=== PATIENT | male | born 1935 | race Caucasian/White ===

== ENCOUNTER 2017-02-18 11:07 | Inpatient (IN) | payer MEDICARE, BC ==
[~2017-02-18] VITALS: Ht 188 cm; Wt 114.1 kg
[2017-02-18 14:20] VITALS: BP 157/76
--- NOTE | 2017-02-18 15:21 | HPEPDOC ---
[facility] Medical History & Physical Date of Admission Feb 18, 2017 History and Physical ATTENDING: Dr. 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 Karate Teacher. [facility] CC: Transfer from [facility] HPI: 81yoM who resides in [facility] and [facility] recently in [facility] for hunting. The Pt has a past medical history significant for systolic CHF, COPD who presented to [facility] 02/08/17 with chief complaint of shortness of breath. He also reported abdominal discomfort and petechial rash lower abdomen and lower extremities bilaterally. According to discharge summary, the patient was treated for small bowel enteritis with IV vancomycin and Zosyn. Initially his rash spread to his whole-body however and a few days this gradually resolved leaving some residual rash on the thighs only. He had some diarrhea and vomiting while he was there. The patient appeared to be improving however suddenly developed acute renal failure with reduced urine output noted of 30 mL on February 14 and 250 mL on February 15. With serum creatinine on 02/14/17 of 3.5. The patient was treated with IV fluids, nephrotoxic drugs were discontinued including aspirin and DORIS inhibitor. The patient was initially placed on IV hydrocortisone considering HSP. The case was discussed with nephrology at [facility] who felt possibly suggestive of ATN. Vasculitis workup was noted to be negative. The patient's serum creatinine peaked at 3.5 and decreased to 1.5. Urine output improved. The patient was subsequently noted to be fluid overloaded. IV Lasix was given. Subsequently transfer was arranged to [facility] for further management. The patient states he is currently having constipation. He also reports shortness of breath. Denies any fevers, chills, weakness, fatigue, TERRAZAS, CP, cough, palpitations, abdominal pain, N/V/D or changes in bowel or bladder habits. PMHx: Hypertension Systolic CHF/Systolic dysfunction. TTE [facility] EF 36-40%. TTE [facility] 05/23 EF 35-40%. RACHANA [facility] 05/22/16 EF 40-45%, global hypokinesis of left ventricle. CAD/cardiac stents Valvular heart disease/mitral valve repair Mitraclip. Chronic anemia Diabetes Carotid stenosis Chronic diabetic foot ulcers History of osteomyelitis COPD Dyslipidemia Gout DOUG. Patient states does not use CPAP. 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 SOCHX: Resides in: Lives part-time in [place], part-time in [facility], in [facility] for hunting. Marital Status: Kids: 3 Employment: Retired Tobacco use: Denies ETOH: Denies Illicit Drugs: Denies Advanced directives: None FAMHX: Mother: , old age per patient Father: , old age per patient Siblings: One brother Alive, arthritis, diabetes. Children: Alive, well Unexpected deaths due to medical reasons: None. ROS: As noted in HPI, otherwise 11pt ROS of systems reviewed and unremarkable. PE: GEN: 81yoM, appears stated age. Well-nourished, well developed. No acute distress. Alert and oriented x 3. Pleasant, interactive. HEENT: Normocephalic, atraumatic. Pupils are equal, round, and reactive to light. Extraocular movements are intact. No nystagmus appreciated. Sclera are nonicteric. Conjunctiva without injection. Nose midline. Nasal turbinates without bogginess. EACs both patent BL. TMs both visualized and batista with good cone of light, no bulging or erythema. No facial asymmetry. Moist mucous membranes. Dentition fair. Pharynx pink and moist, no cobblestoning. Neck supple , trachea midline. No lymphadenopathy or thyromegaly appreciated. CHEST: Regular rate and rhythm, +S1, +S2 LUNGS: Decreased BS at bases, with few rales. No wheezes, or rhonchi. Breathing appears symmetric and easy. Patient is speaking in full sentences. No accessory muscle use. ABD: Round, soft, non-tender, non-distended. +Bowel sounds throughout. No rebound or guarding. No costovertebral angle tenderness. EXT: Pulses 2+ bilaterally dorsalis pedis and radial. trace lower extremity edema appreciated. SKIN: Gaines, dry, warm. purpuric rash noted on LEs and few lesions on abdomen ( pt states has been resolving). Left foot ulcer noted. NEURO: Alert and oriented x 3. Cranial nerves III-XII are intact. No focal deficits appreciated. [facility] 02/18/17 WBC 11.1 Hemoglobin 9.8 Hematocrit 30.5 Platelets 221 Sodium 142 Potassium 3.7 Chloride 107 Carbon dioxide 26 BUN 40 Creatinine 1.80 GFR 36 Glucose 136 ProBNP 5699 Hemoglobin A1c 8.9 02/14/17 CRP 55.8 C Anca, p Anca, GUI-1, SS-A, SS-B, rowe Ab, OIL SPRAYER Ab, DS DNA, centromere B antibody, chromatin antibody, and Lyme unremarkable. 02/08/17 ESR 41 INR 1.0 Lactic acid 1.8 Magnesium 1.9 Amylase 68 Lipase 50 Troponin 0.061 Chest x-ray. [facility]. NAD. XR: Left foot. [facility]. Question third toe osteomyelitis, previously a patient digit [address]: Abdomen and pelvis [facility] 02/08/17. Small bowel enteritis, infectious versus inflammation versus ischemia. EKG: [facility] sinus bradycardia, 59 bpm. LAD, nonspecific ST-T wave abnormality, prolonged QT, QTC 469. BLOOD CULTURES: [facility] 02/08/17 no growth A&P: 81yoM with a past medical history significant for systolic CHF, COPD who presented to [facility] 02/08/17 with chief complaint of shortness of breath. He also reported abdominal discomfort and petechial rash lower abdomen and lower extremities bilaterally. According to discharge summary , the patient was treated for small bowel enteritis with IV vancomycin and Zosyn. Initially his rash spread to his whole-body however and a few days this gradually resolved leaving some residual rash on the thighs only. He had some diarrhea and vomiting while he was there. He was treated for dehydration with IV fluids. The patient appeared to be improving however suddenly developed acute renal failure with reduced urine output noted of 30 mL on February 14 and 250 mL on February 15. With serum creatinine on 02/14/17 of 3.5. The patient was treated with IV fluids, nephrotoxic drugs were discontinued including aspirin and DORIS inhibitor. The patient was initially placed on IV hydrocortisone considering HSP. The case was discussed with nephrology who felt possibly suggestive of ATN. Vasculitis workup was noted to be negative. The patient's serum creatinine peaked at 3.5 and decreased to 1.5. Urine output improved. The patient was subsequently noted to be fluid overloaded. IV Lasix was given 1. The patient will be admitted to PCU for at least [address] Stelee's service. Pt is discussed and examined as per Dr Zarate. 2. History of Small bowel enteritis. Status post vancomycin/Zosyn at [facility]. Request further labs. GI panel. 3. Diabetic ulcer/Charcot foot. Follows with podiatry in [facility]. Seen by orthopedics and [facility], not felt to be osteomyelitis. Plan was for possible elective debridement of left foot ulcer, pt declined. XR left foot pending. Request podiatry consult. Spoke with Podiatry, Dr Garcia who will see pt and also requests MRI left foot as well. 4. RODRICK. Adm labs pending. Request Urine studies. Nephrology consulted for further recommendations. Dr Jhoana Jefferson will see pt. 5. HTN/Systolic CHF/Systolic dysfunction. CXR pending. Labs, BNP and CXR pending , await results prior to diuretics. 6. VHD/MV repair. TTE pending. 7. CAD/Cardiac stents. PCU/TM. EKG pending. TTE pending. Labs pending. 8. DM. CC diet. SSI 9. DOUG. prn O2. Pt does not use CPAP as outpt. 10. Rash. Currently resolving. Etiology unclear. Vasculitis w/u unremarkable. CRP pending. 11. Prolonged QT. PCU/TM. MED REC IS PENDING AT THIS TIME. DVT prophylaxis. The patient is a Full code Vital Signs pending. Laboratory Data Labs 24H pending. Home Medications Scheduled Aspirin (Aspirin 81) 81 Mg Tab, 81 MG PO DAILY Carvedilol (Carvedilol) 6.25 Mg Tab, 6.25 MG PO BID WAS ON 12.5MG @ HOME - DECREASED AT [facility] Ferrous Gluconate (Ferrous Gluconate) 324 Mg Tab, 324 MG PO BID STARTED AT [facility] Glimepiride (Glimepiride) 2 Mg Tab, 2 MG PO BID Heparin Sod (Porcine) (Heparin Sodium) 5,000 Unit/Ml Inj, 5,000 UNIT SQ Q8H STARTED AT [facility] Hydrochlorothiazide (Hydrochlorothiazide) 25 Mg Tab, 25 MG PO DAILY Insulin Human Lispro (Humalog) 1 Units/0.01 Ml Inj, 0 SC ACHS PER SLIDING SCALE - STARTED AT [facility] Lactobacillus Rhamnosus (Culturelle) 1 Cap Cap, 1 CAP PO DAILY Lisinopril (Lisinopril) 10 Mg Tab, 10 MG PO DAILY Multivitamins *[facility] STOCKED* (Thera M Plus *[facility] STOCKED*) 1 Tab Tab, 1 TAB PO DAILY Omeprazole (Omeprazole) 40 Mg Cap, 40 MG PO DAILY Potassium Chloride (Klor-Con M20) 20 Meq Tabcr, 20 MEQ PO DAILY STARTED AT [facility] Pravastatin Sod (Pravastatin Sodium) 40 Mg Tab, 40 MG PO QHS Timolol Maleate (Timolol Maleate) 0.5 % Jessica, 1 % OU QAM Scheduled PRN Acetaminophen (Tylenol) 325 Mg Tab, 650 MG PO Q6H PRN for PAIN Dicyclomine HCl (Dicyclomine HCl) 10 Mg Cap, 10 MG PO Q6H PRN for CRAMPS Milk Of Magnesia (Milk of Magnesia) 1,200 Mg/15 Ml Hiwot, 30 ML PO DAILY PRN for CONSTIPATION STARTED AT [facility] Sodium Chloride (Sodium Chloride Nasal [place]) 0.65 % Spr, 2 SPRAY NA Q2H PRN for NASAL CONGESTION EACH NOSTRIL Allergies Coded Allergies: No Known Allergies (Unverified , 02/18/17) GME ATTESTATION GME ATTESTATION My faculty preceptor for this patient encounter was physically present during the encounter and was fully available. All aspects of the patient interview, examination, medical decision making process, and medical care plan development were reviewed and approved by the faculty preceptor. The faculty preceptor is aware and concurs with the plan as stated in the body of this note and will attest to such by his/her cosignature. ATTENDING NOTE I have both independently examined this patient as well as reviewed the H&P. I have discussed in detail with Arianna the findings and plan of treatment as documented in the Saul note. I will continue to follow the patient and offer further guidance to the patients care as necessary during this hospital stay. Arianna Aragon MD Feb 18, 2017 15:21 KARUNA ZARATE MD Feb 19, 2017 10:51
[2017-02-18] MEDS ORDERED: DEXTROSE 50% 50 ML SYRINGE IV PRN (15:45)
[2017-02-18] MEDS ORDERED: GLUCOSE 4 GM CHEW TABLET PO PRN (15:45)
[2017-02-18] MEDS ORDERED: GLUCAGON FOR INJ 1 MG VIAL (J1610) SC PRN (15:45)
[2017-02-18] MEDS ORDERED: ONDANSETRON 4MG/2ML VIAL (J2405) IV PRN (15:45)
[2017-02-18] MEDS ORDERED: PERCOCET 5MG/325MG TAB PO PRN (15:45)
[2017-02-18] MEDS ORDERED: ACETAMINOPHEN TAB 650MG DOSE (2X325MG) PO PRN (15:45)
[2017-02-18 16:00] VITALS: BP 149/72
[2017-02-18 16:11] LABS: BASO % 0.2 % (0.0-1.0); EOS % 0.1 % (0.0-3.0); IMMATURE GRANULOCYTE % 2.3 % (0-0); LYMPH % 9.1 % (24.0-44.0); MEAN CORPUSCULAR HEMOGLOBIN 32.9 pg (27.0-33.0); MEAN CORPUSCULAR HGB CONC 33.2 g/dl (32.0-36.5); MONO # 0.6 10^3/uL (0.0-0.8); MONO % 5.6 % (0.0-5.0); NEUTROPHILS # 8.9 10^3/uL (1.8-7.7); NEUTROPHILS % 82.7 % (36.0-66.0); PLATELET COUNT, AUTOMATED 218 10^3/uL (150-450); RED CELL DISTRIBUTION WIDTH 13.4 % (11.5-14.5); WHITE BLOOD COUNT 10.7 10^3/uL (4.0-10.0)
[2017-02-18] MEDS ORDERED: ASPI1TAB PO (16:14)
[2017-02-18] MEDS ORDERED: POTA20TA PO (16:14)
[2017-02-18] MEDS ORDERED: VITMTA PO (16:14)
[2017-02-18] MEDS ORDERED: CARV6.25 PO (16:14)
[2017-02-18] MEDS ORDERED: FERR32TA PO (16:14)
[2017-02-18] MEDS ORDERED: TIMO0.5S29 OD (16:14)
[2017-02-18] MEDS ORDERED: SODI0.65 (16:14)
[2017-02-18] MEDS ORDERED: PANT40TA2 PO (16:14)
[2017-02-18] MEDS ORDERED: TYLE325T5 PO (16:14)
[2017-02-18] MEDS ORDERED: MILKSUS PO (16:14)
[2017-02-18] MEDS ORDERED: HEPA50VL SQ (16:14)
[2017-02-18] MEDS ORDERED: INSUHUMDS SC (16:14)
[2017-02-18] MEDS ORDERED: PRAV40TA2 PO (16:14)
[2017-02-18] MEDS ORDERED: OMEP40CA2 PO (16:17)
[2017-02-18] MEDS ORDERED: DICY1CAP8 PO (16:17)
[2017-02-18] MEDS ORDERED: LISI10TA4 PO (16:17)
[2017-02-18] MEDS ORDERED: HYDR25TAB PO (16:17)
[2017-02-18] MEDS ORDERED: CULT10CA2 PO (16:17)
[2017-02-18] MEDS ORDERED: GLIM2TAB PO (16:17)
[2017-02-18 16:24] LABS: INR 1.01
[2017-02-18] MEDS ORDERED: SODIUM CHLORIDE NASAL 0.65% SPRAY BTL (OCEAN) PRN (16:30)
[2017-02-18] MEDS ORDERED: DICYCLOMINE 10 MG CAP PO PRN ×2 (16:30)
[2017-02-18] MEDS ORDERED: MIRALAX *UNIT DOSE* 17GM PACKET PO ONE (16:30)
[2017-02-18 16:42] LABS: ALBUMIN 3.1 GM/DL (3.2-5.2); ALBUMIN/GLOBULIN RATIO 1.07 (1.00-1.93); BILIRUBIN,TOTAL 0.3 MG/DL (0.2-1.0); CALCIUM LEVEL 8.1 MG/DL (8.8-10.2); CREATININE FOR GFR 1.89 MG/DL (0.70-1.30); GLOMERULAR FILTRATION RATE 36.5 (>35); MAGNESIUM LEVEL 2.3 MG/DL (1.8-2.4); POTASSIUM SERUM 4.4 MEQ/L (3.5-5.1); THYROXINE (T4) 9.3 UG/DL (4.5-12.0)
[2017-02-18] MEDS: LACTOBACILLUS ACIDOPHILUS CAP (BACID) PO SCH (17:48)
[2017-02-18] MEDS: HumaLOG INSULIN (NovoLOG) PER UNIT SC SCH ×2 (17:48→21:00)
[2017-02-18 18:15] VITALS: O2SAT 96
[2017-02-18] MEDS ORDERED: FUROSEMIDE 40 MG/4 ML VIAL (J1940) IV ONE (18:30)
[2017-02-18 20:53] VITALS: BP 165/80
[2017-02-18] MEDS: FERROUS GLUCONATE 324 MG TAB PO SCH (20:55)
[2017-02-18] MEDS: PRAVASTATIN 20 MG TAB PO SCH (20:55)
[2017-02-18] MEDS: CARVedilol 6.25 MG TAB PO SCH (20:55)
[2017-02-18] MEDS: SENOKOT S TAB PO SCH (20:55)
[2017-02-18] MEDS: HEPARIN SOD (PORCINE) 5000 UNITS/ML VIAL SQ SCH (20:56)
[2017-02-18] MEDS ORDERED: DOPamine 400 MG/500 ML BAG IN D5W (800MCG/ML) (J1265) As Ordered ONE (22:42)
[2017-02-19] VITALS (7 sets, daily range): BP systolic 108–160; BP diastolic 51–80
--- NOTE | 2017-02-19 01:13 | ECGEPIP ---
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 IVCD MARKED LEFT AXIS DEVIATION NONSPECIFIC ST & T-WAVE ABNORMALITY No prior tracing in the system Electronically Signed On 02-19-2017 1:13:31 EST by Liang Mcleod
[2017-02-19] MEDS: HEPARIN SOD (PORCINE) 5000 UNITS/ML VIAL SQ SCH ×3 (05:07→21:23)
[2017-02-19] MEDS: SLF 3 ML SYR IV SCH ×3 (05:07→21:23)
[2017-02-19 05:32] LABS: MEAN CORPUSCULAR HEMOGLOBIN 32.1 pg (27.0-33.0); MEAN CORPUSCULAR HGB CONC 32.6 g/dl (32.0-36.5); MEAN CORPUSCULAR VOLUME 98.3 fl (80.0-96.0); PLATELET COUNT, AUTOMATED 209 10^3/uL (150-450); RED CELL DISTRIBUTION WIDTH 13.4 % (11.5-14.5); WHITE BLOOD COUNT 9.9 10^3/uL (4.0-10.0)
[2017-02-19 05:54] LABS: CALCIUM LEVEL 7.9 MG/DL (8.8-10.2); CREATININE FOR GFR 1.78 MG/DL (0.70-1.30); GLOMERULAR FILTRATION RATE 39.1 (>35); MAGNESIUM LEVEL 2.1 MG/DL (1.8-2.4); PHOSPHORUS LEVEL 2.8 MG/DL (2.5-4.9); POTASSIUM SERUM 3.8 MEQ/L (3.5-5.1)
[2017-02-19] MEDS: HumaLOG INSULIN (NovoLOG) PER UNIT SC SCH ×4 (08:31→21:00)
[2017-02-19] MEDS: LACTOBACILLUS ACIDOPHILUS CAP (BACID) PO SCH ×3 (08:31→18:11)
--- NOTE | 2017-02-19 08:42 | REP ---
Clinical: Shortness of breath. Technique: PA and lateral. Comparison: None. Findings: Mediastinum and cardiac silhouette are within normal limits. Lung gandara demonstrate chronic-appearing interstitial changes. Superimposed acute atelectasis cannot be excluded. Subtle blunting to the bilateral costophrenic angles (right greater than left) may reflect chronic change versus small pleural reaction. No significant effusion. No pneumothorax. Skeletal structures intact. Impression: Chronic-appearing changes. Cannot exclude subtle superimposed basilar atelectasis. Signed by Flo Ramirez MD 02/19/2017 08:35 A
[2017-02-19] MEDS: SENOKOT S TAB PO SCH ×2 (09:00→21:23)
[2017-02-19] MEDS ORDERED: TIMOLOL MALEATE 0.5% OPHTH SOLN 5 ML OD SCH (09:00)
--- NOTE | 2017-02-19 09:10 | REP ---
Clinical: Acute renal insufficiency. Technique: Real time batista scale ultrasound examination using curved array transducer. Findings: The kidneys are normal in reniform shape and parenchymal echogenicity with increased central sinus fat suggesting chronic age-related changes. Incidental note is made of a 2.0 cm right lower pole renal cyst. There is no evidence for hydronephrosis, nephrolithiasis, perinephric stranding or renal mass lesion. The bladder is collapsed and grossly unremarkable. Right kidney measures 12.2 S 6.5 x 5.6 cm. Left kidney measures 12.4 x 6.8 x 5.5 cm. Impression: Findings to suggest age-related medical renal disease. No hydronephrosis. 2 cm lower pole right renal cyst. Signed by Flo Ramirez MD 02/19/2017 09:01 A
[2017-02-19] MEDS: CARVedilol 6.25 MG TAB PO SCH ×2 (09:34→21:00)
[2017-02-19] MEDS: FERROUS GLUCONATE 324 MG TAB PO SCH ×2 (09:34→21:23)
[2017-02-19] MEDS: MULTIVITAMINS/MINERALS THERAP 1 TAB PO SCH (09:34)
[2017-02-19] MEDS: ASPIRIN 81 MG ENTERIC TAB PO SCH (09:35)
[2017-02-19] MEDS: PANTOPRAZOLE 40MG TAB (PROTONIX) PO SCH (09:35)
[2017-02-19] MEDS: MIRALAX *UNIT DOSE* 17GM PACKET PO SCH (09:38)
[2017-02-19] MEDS ORDERED: TIMO0.5S29 OU (10:42)
[2017-02-19] MEDS: TIMOLOL MALEATE 0.5% OPHTH SOLN 5 ML OU SCH (11:08)
--- NOTE | 2017-02-19 11:23 | REP ---
MRI LEFT FOOT: TECHNIQUE: Multiple sequences obtained in the axial, coronal, and sagittal planes. Reportedly, there is a diabetic ulcer in the medial mid foot. The study limited as there is poor signal and poor imaging of the toes and distal metatarsals. The remaining proximal metatarsals and tarsal bones demonstrate normal marrow signal with no evidence of osteomyelitis or occult fracture. Scattered superficial soft tissue edema is seen in the mid foot. No fluid collection or abscess is seen. I do not see evidence of a joint effusion. Visualized tendons and ligaments appear intact at the ankle. IMPRESSION: No evidence of osteomyelitis of the mid foot and hind foot, as discussed in detail above. Superficial soft tissue edema. No fluid collection or abscess. Signed by Mookie Allan MD 02/19/2017 04:53 P
[2017-02-19] MEDS: FUROSEMIDE 40 MG/4 ML VIAL (J1940) IV SCH (12:44)
--- NOTE | 2017-02-19 13:19 | IPNPDOC ---
Text Note Date of Service The patient was seen on 02/19/17. NOTE Subjective: Feels well. Denies any complaints. No chest pain/shortness of breath /palpitations. Objective: Vitals: (see below) General: No acute distress, laying comfortably in bed. HEENT: Moist mucous membranes. Neck: No JVD or lymphadenopathy Cardiac: RRR, No murmurs Pulm: Minimal coarse crackles at the bases b/l. No wheezing, rhonchi Abd: NT/ND + BS Ext: 1+ pitting edema bilateral lower extremities left greater than the right. Distal pulses intact. Left foot wound with bandage status post debridement by Dr. Garcia. No cyanosis Labs (see below) Images: MRI left foot 02/18/17 IMPRESSION: No evidence of osteomyelitis of the mid foot and hind foot, as discussed in detail above. Superficial soft tissue edema. No fluid collection or abscess. Renal ultrasound 02/18/17 Impression: Findings to suggest age-related medical renal disease. No hydronephrosis. 2 cm lower pole right renal cyst. Assessment/Plan 1. Recent small bowel enteritis- status post Vanc/ Zosyn at [facility]. Resolved. No leukocytosis and fevers. 2. Diabetic foot, Charcot foot- evaluated by Dr. Garcia status post debridement 02/19, with recommendations for starting antibiotics pending cultures, per Dr. Garcia. Patient has been started on doxycycline. 3. Acute kidney injury- patient is unsure what his normal renal function is. Did have a creatinine greater than 3 [facility] and is down to 1.7. Appreciate nephrology input. Started on Lasix as his renal function improved and he does have lower extremity edema. 4. History of systolic heart failure- echocardiogram pending. History of ear for 35-40%. 5. Status post mitral valve repair in [place] in May 2016 6. Hypertension- controlled continue current meds 7. History of CAD status post PCI-continue home meds 8. Diabetes mellitus- carpal consistent diet. Slight scale insulin. 9. Obstructive sleep apnea- encouraged uses home CPAP which she does not use at home. As needed oxygen at night. 10. Rash noted [facility]- has been resolving. Had an extensive vascular workup which was negative at [facility]. DVT prophy: Heparin subcutaneous VS,Fishbone, I+O VS, Fishbone, I+O Laboratory Tests 02/18/17 16:00 Red Blood Count 3.10 L, Mean Corpuscular Volume 99.0 H, Mean Corpuscular Hemoglobin 32.9, Mean Corpuscular Hemoglobin Concent 33.2, Red Cell Distribution Width 13.4, Neutrophils (%) (Auto) 82.7 H, Lymphocytes (%) (Auto) 9.1 L, Monocytes (%) (Auto) 5.6 H, Eosinophils (%) (Auto) 0.1, Basophils (%) ( Auto) 0.2, Neutrophils # (Auto) 8.9 H, Lymphocytes # (Auto) 1.0 L, Monocytes # ( Auto) 0.6, Eosinophils # (Auto) 0.0, Basophils # (Auto) 0.0, Calcium Level 8.1 L , Aspartate Amino Transf (AST/SGOT) 19, Alanine Aminotransferase (ALT/SGPT) 25, Total Creatine Kinase 108, Alkaline Phosphatase 61, Total Bilirubin 0.3, Total Protein 6.0 L, Albumin 3.1 L 02/19/17 04:59 Red Blood Count 2.90 L, Mean Corpuscular Volume 98.3 H, Mean Corpuscular Hemoglobin 32.1, Mean Corpuscular Hemoglobin Concent 32.6, Red Cell Distribution Width 13.4, Calcium Level 7.9 L Vital Signs Date Time Temp Pulse Resp B/P (MAP) Pulse Ox O2 Delivery O2 Flow Rate FiO2 02/19/17 12:00 97.6 89 26 123/80 (94) 98 Nasal Cannula 1.0 I&O- Last 24 Hours up to 6 AM 02/20/17 06:00 Intake Total 120 ml Output Total 350 ml Balance -230 ml ISAC SAUNDERS MD Feb 19, 2017 13:19
[2017-02-19] MEDS: DOXYCYCLINE HYCLATE 100 MG in D5W MINI-BAG PLUS 100 ML IV SCH (14:36)
[2017-02-19] MEDS: SLF 3 ML SYR IV PRN (14:36)
--- NOTE | 2017-02-19 16:03 | MHCR ---
DATE OF CONSULTATION: 02/19/2017 HISTORY OF PRESENT ILLNESS: Mr. Chinchilla is an 81-year-old male who resides in [place]. He was up hunting in [place]. The patient states that he was short of breath, subsequently admitted to the hospital, and subsequently transferred to [facility]. He has a history of an ulceration on the plantar surface of his left foot which he states he was on some IV antibiotics. He has had previous surgery on his left foot as well consisting of a partial amputation of the second toe and he is seen today on referral for an ulceration on the plantar surface of the left foot with callus and redness. PAST MEDICAL HISTORY: Includes: 1. Hypertension. 2. Systolic congestive heart failure with systolic dysfunction. 3. Valvular heart disease. 4. Mitral valve repair. 5. Chronic anemia. 6. Diabetes. 7. Cardiac stenosis. 8. 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 9. Chronic foot ulcers. 10. Dyslipidemia. 11. Gout. PAST SURGICAL HISTORY: 1. Partial second toe amputation of the left foot. 2. Total knee arthroplasties, bilateral. 3. Open reduction and internal fixation of a femoral fracture. 4. Mitral valve repair. PHYSICAL EXAMINATION: Reveals an alert, well-oriented 81-year-old male in no acute distress. Evaluation of his left foot reveals a hyperkeratotic lesion present on the plantar surface of the left foot. He has a Charcot joint deformity with a flat foot. Second toe has had a previous partial amputation. His pedal pulses are not palpable. After appropriate consent and time-out, the ulcer was debrided with a sterile scalpel and curette revealing a 9 mm x 2 mm x 1 mm in depth ulceration. This does not penetrate down to bone. This was cultured for aerobic and anaerobic bacteriology. The patient's hyperkeratotic rim around the ulcer measures 12 mm. LABORATORY STUDIES: Reviewed revealing a white count of 9.9. His C-reactive protein is elevated at 3.97. IMAGING STUDIES: MRI reveals no signs of osteomyelitis. There is erythema surrounding the ulceration measuring approximately 1 cm consistent with cellulitis. No edema of the foot or signs of active Charcot joint disease on either extremity. ASSESSMENT: 1. Infected stage III ulceration, plantar surface left foot as described. 2. Diabetes with peripheral artery disease. 3. Old Charcot joint deformity. His left foot is presently stable. PLAN: The patient has a brace. However, he states that it broke and he thinks that is why his ulcer formed. He is to have local wound care, consisting of Vashe to clean the ulcer followed by a saline-moistened gauze dressing. The patient would benefit from either a reapplication of a neuropathic walking brace or custom molded diabetic shoes which can be done on an outpatient basis. Recommend antibiotic coverage which can be tailored according his culture and sensitivity. The patient can ambulate in a surgical shoe until custom shoes or bracing is available. His questions were answered. Thank you for this consultation.
[2017-02-19] MEDS: PRAVASTATIN 20 MG TAB PO SCH (21:22)
--- NOTE | 2017-02-19 23:33 | ECHO ---
DATE OF PROCEDURE: 02/19/2017 DATE OF : 1935 AGE: 81 GENDER: Male HEIGHT: 74 inches WEIGHT: 264 pounds BODY SURFACE AREA: 2.45 meters squared INPATIENT: U, room 3219 REFERRING PHYSICIAN: Dr. Shree Steele INDICATION: Dyspnea MEASUREMENTS: 2D Measurements: RV: 5.5 cm LV: 5.4 cm Septum: 1.3 cm Posterior wall: 1.3 cm Aortic root: 3.8 cm LA: 5.1 cm LVEF: 45% Doppler Measurements: AV: 1.8 meters per second LVOT: 0.95 meters per second LVOT diameter: 2.3 cm MV: E 150 A: 104, EA ratio 1.5 Early mitral deceleration time: 360 milliseconds Mean gradient: 3 mmHg E prime: 5.4, A prime: 6, E/E prime ratio: 23 PV: 0.9 meters per second Pulmonary artery acceleration time: 109 milliseconds RVSP: 46-51 mmHg COMMENTS: Normal sinus rhythm/sinus bradycardia with incomplete left bundle branch block. Prominently dilated left atrium with left ventricle upper limits of normal. Right heart chamber sizes were prominently dilated. LV wall thickness was mildly increased symmetrically. On real-time imaging from the parasternal and apical projections, there was an obvious flattening of the septum with akinesis of that segment but other left ventricular wall segments moved normally. Mild to moderate mitral annular thickening with slightly thickened mitral leaflet edges with obvious mitral leaflet clip. Reduced leaflet excursion but no posterior systolic buckling. Three equal size aortic cusps with mildly thickened cusp edges but adequate cusp separation. Aortic root was borderline increased. No apparent intracardiac mass or pericardial effusion. Color flow Doppler study taken from the parasternal and apical projection showed mild mitral, moderate tricuspid but no aortic insufficiency. Guided continuous wave Doppler of his aortic valve showed a normal peak systolic velocity against LV outflow tract obstruction. Pulsed and continuous wave Doppler of his LV inflow tract taken for the apical four-chamber projection showed normal diastolic filling velocities against mitral stenosis. Even with the mitral leaflet clip, the measured mean mitral valve diastolic gradient was within normal limits. The LV inflow tract pattern was normal. Estimated mean left atrial pressure was increased at approximately 23 mmHg. Pulsed and continuous wave Doppler of his pulmonary trunk showed a normal peak systolic velocity against RV outflow tract obstruction. His pulmonary artery acceleration time was abbreviated consistent with an elevated pulmonary vascular resistance. Guided continuous wave Doppler of his tricuspid valve allowed our estimation of his right ventricular systolic pressure (at least moderately increased). In light of his body habitus, we were unable to clearly visualize his inferior vena cava to further estimate his central venous pressure. We used an estimated central venous pressure of 10 mmHg. CONCLUSIONS: Mild concentric left ventricular hypertrophy with septal wall motion abnormality due to right ventricular pressure overload with at least mild impairment of global resting left ventricular systolic function. Prominently dilated left atrium with elevated estimated mean left atrial pressure. Prominently dilated right heart chambers with at least moderately severe pulmonary hypertension. Inferior vena cava (IVC) could not be clearly visualized. Mild to moderate mitral annular calcification and slight leaflet thickening with mitral leaflet clip in situ. No significant LV inflow tract obstruction and only mild persistent mitral insufficiency. Mild aortic valvular sclerosis without functional valvular abnormality. MTDD
[2017-02-20] VITALS (7 sets, daily range): BP systolic 117–173; BP diastolic 56–83
--- NOTE | 2017-02-20 00:49 | IPNPDOC ---
Text Note Date of Service The patient was seen on 02/20/17. NOTE Patient Bradycardic to low 50s as per the Nurse, So Coreg being Held for Now Travis YAO, I+O VSTravis I+O Laboratory Tests 02/19/17 04:59 Red Blood Count 2.90 L, Mean Corpuscular Volume 98.3 H, Mean Corpuscular Hemoglobin 32.1, Mean Corpuscular Hemoglobin Concent 32.6, Red Cell Distribution Width 13.4, Calcium Level 7.9 L Vital Signs Date Time Temp Pulse Resp B/P (MAP) Pulse Ox O2 Delivery O2 Flow Rate FiO2 02/20/17 00:16 97.0 58 20 146/72 (96) 94 Nasal Cannula 1.0 ZANE DEL CASTILLO MD Feb 20, 2017 00:49
[2017-02-20] MEDS: DOXYCYCLINE HYCLATE 100 MG in D5W MINI-BAG PLUS 100 ML IV SCH ×2 (02:57→13:39)
[2017-02-20 05:30] LABS: MEAN CORPUSCULAR HEMOGLOBIN 32.1 pg (27.0-33.0); MEAN CORPUSCULAR HGB CONC 32.9 g/dl (32.0-36.5); MEAN CORPUSCULAR VOLUME 97.7 fl (80.0-96.0); PLATELET COUNT, AUTOMATED 203 10^3/uL (150-450); RED CELL DISTRIBUTION WIDTH 13.2 % (11.5-14.5); WHITE BLOOD COUNT 7.7 10^3/uL (4.0-10.0)
[2017-02-20 05:50] LABS: CREATININE FOR GFR 1.47 MG/DL (0.70-1.30); GLOMERULAR FILTRATION RATE 48.8 (>35); MAGNESIUM LEVEL 1.9 MG/DL (1.8-2.4); POTASSIUM SERUM 3.4 MEQ/L (3.5-5.1)
[2017-02-20] MEDS: SLF 3 ML SYR IV SCH ×3 (06:00→21:09)
[2017-02-20] MEDS: HEPARIN SOD (PORCINE) 5000 UNITS/ML VIAL SQ SCH ×3 (06:11→21:08)
--- NOTE | 2017-02-20 06:49 | CR ---
DATE OF CONSULTATION: 02/19/2017 REQUESTING PHYSICIAN: Dr. Sarah Dias. REASON FOR CONSULTATION: Acute kidney injury, nonoliguric. CHIEF COMPLAINT: Diffuse rash and abdominal pain prompting admission to [facility], now with subsequent transfer to [facility]. HISTORY OF PRESENT ILLNESS: Mr. Nicanor Chinchilla is an 81-year-old male with a past medical history of longstanding hypertension and diabetes, coronary artery disease with history of stent and systolic cardiomyopathy, history of mitral valve repair and chronic obstructive pulmonary disease (COPD). The patient recently drove from [place] to [facility] for hunting. He spent one night in camp and woke up the next morning with abdominal discomfort, nausea, and a rash that was petechial in nature over his abdomen and lower extremities. He was subsequently admitted to [facility] on 02/08. During the course of his stay there, his rash diffusely spread to cover about 80% total body surface area. The patient was concurrently having gastrointestinal (GI) distress with diarrhea and vomiting, and he received empiric antibiotics for small bowel enteritis. In the setting of the diffuse rash, the patient's renal function also declined with a peak creatinine of 3.5. At that time, he was given intravenous (IV) fluids and his angiotension-converting enzyme (DORIS) inhibitor was discontinued. The patient was started on empiric steroids and a vasculitic workup was sent off and returned negative. The patient's renal function and urine output subsequently began to improve. However, he complains of shortness of breath. He was started on IV Lasix and subsequently transferred to [facility] for further management. The patient is seen at the bedside today. He denies any ongoing abdominal discomfort, denies any nausea, vomiting or diarrhea. He does note dyspnea on exertion that is new compared to prior. He denies any prior history of acute kidney injury. He states that his rash has significantly improved compared to prior. PAST MEDICAL HISTORY: 1. Baseline creatinine less than one. 2. Longstanding hypertension. 3. Diabetes. 4. Coronary artery disease status post cardiac stent. 5. History of systolic heart failure with left ventricular ejection fraction of about 40%. 6. Mitral valve repair. 7. Chronic diabetic foot ulcer. 8. History of osteomyelitis. 9. Chronic obstructive pulmonary disease (COPD). 10. Hyperlipidemia. PAST SURGICAL HISTORY: 1. Total knee arthroplasty bilaterally. 2. History of femur fracture status post open reduction, internal fixation (ORIF) in 2012. 3. Debridement of left foot. 4. 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 5. Mitral valve repair in 2017. SOCIAL HISTORY: The patient resides in [place] and traveled to [place] for hunting. He denies tobacco, alcohol or drug use. FAMILY HISTORY: He denies any significant family history of renal failure or kidney disease. ALLERGIES: No known allergies. REVIEW OF SYSTEMS: As noted in history of present illness (HPI); otherwise, 12-point review of systems is unremarkable. PHYSICAL EXAMINATION: VITAL SIGNS: Temperature afebrile for the past 24 hours while here. Current temperature 98.1, pulse 89, respiratory rate 20-22 breaths per minute, blood pressure 123/80, saturating 98% on one liter nasal cannula. INTAKE AND OUTPUT: Urine output thus far 0 mL. Weight in the bed scale today 118 kg, decreased from prior. GENERAL: The patient is seen lying in bed comfortable in no acute distress. HEENT: Extraocular muscles are intact. Mucous membranes are moist. No oral ulcers or lesions noted. NECK: Supple. Jugular veins are not elevated. CARDIAC: S1, S2. Regular rate and rhythm. 2+ radial pulse. 1+ pitting edema in the left lower extremity and trace edema in the right. No edema in the upper extremities. PULMONARY: The patient is in no acute respiratory distress. No accessory muscle of inspiration in use. However, is mildly tachypneic, respiratory rate 20-22. There are diminished breath sounds at the bases. No wheezing or rhonchi. ABDOMEN: Soft, obese, nontender. Positive bowel sounds. EXTREMITIES: 1+ pitting edema on the left lower extremity. Trace edema on the right lower extremity. The left foot is dressed. NEUROLOGIC: No focal deficits. PSYCHIATRIC: Appropriate mood and affect. SKIN: Skin is warm and dry. There are fading purpuric and petechial rashes noted on the lower extremities and on the abdomen. LABORATORY DATA: White count 9.9, hemoglobin 9.3, platelets 209. Sodium 143, potassium 3.8, bicarbonate 27, BUN 35, creatinine 1.7, glucose 144, magnesium 2.1. CRP 3.9. Urinalysis negative for protein. Two RBCs present. MICROBIOLOGY: Blood culture 02/18: No growth times two sets. IMAGING: Renal ultrasound 02/18: Echogenic kidneys without hydronephrosis. Bladder is collapsed. A 2 cm lower pole right renal cyst. INPATIENT MEDICATIONS: I have started the patient on Lasix 40 mg IV daily. He is also on: - doxycycline 100 mg IV every 12 - aspirin 81 mg by mouth daily - Coreg 6.25 mg by mouth twice a day - ferrous 324 mg by mouth twice a day - insulin - Bacid - Percocet as needed - Zofran as needed - Protonix 40 mg by mouth daily - MiraLAX one packet by mouth daily - pravastatin 40 mg by mouth at bedtime HOME MEDICATIONS: - aspirin 81 mg by mouth daily - carvedilol 6.25 mg by mouth twice a day - glimepiride 2 mg by mouth twice a day - hydrochlorothiazide 25 mg by mouth daily - insulin sliding scale - lactobacillus one capsule by mouth daily - lisinopril 10 mg by mouth daily - omeprazole 40 mg by mouth daily - pravastatin 40 mg by mouth at bedtime - timolol eye drops PROBLEMS: 1. Nonoliguric acute kidney injury in the setting of sudden-onset diffuse rash and accompanying small bowel enteritis with recent empiric antibiotics with vancomycin and Zosyn, and also recent course of steroids. The patient's peak creatinine was 3.5, and his renal function is improving. Apparently his baseline creatinine is less than one. His renal ultrasound was unremarkable and urinalysis was negative for protein and only showed two red blood cells (RBCs). Given the overall lack of protein and blood, glomerulonephritis is much less likely, and I am inclined to think the patient has a recovering acute tubular injury, possible tubular necrosis. At this point, his electrolytes are stable and he is mildly hypervolemic. He has responded well to Lasix 40 mg IV daily, and at the present, I will continue him on the same. Avoid all nephrotoxics at this time. 2. Diffuse purpuric rash with sudden onset and subsequent improvement. I am unsure of the etiology of the patient's rash. At present, it is minimal. He had an extensive vasculitic workup at [facility] which was negative, and he completed a course of steroids for the same. 3. Systolic cardiomyopathy with ejection fraction of about 40% on previous echocardiogram, brain natriuretic peptide (BNP) 7800, and the patient has some mild to moderate decompensation in volume status. Will continue with IV Lasix 40 mg daily, along with fluid restriction and daily weights. 4. Hypertension. Well controlled on current regimen. 5. Diabetic foot. The patient is status post debridement and has started on doxycycline, pending cultures. Thank you for involving me in the care of this patient. I will be happy to follow the patient along with you.
[2017-02-20] MEDS ORDERED: POTASSIUM CHLORIDE 10 MEQ SR TABLET PO ONE (08:00)
[2017-02-20] MEDS: TIMOLOL MALEATE 0.5% OPHTH SOLN 5 ML OU SCH (08:26)
[2017-02-20] MEDS: HumaLOG INSULIN (NovoLOG) PER UNIT SC SCH ×4 (08:26→20:54)
[2017-02-20] MEDS: MIRALAX *UNIT DOSE* 17GM PACKET PO SCH (08:26)
[2017-02-20] MEDS: FUROSEMIDE 40 MG/4 ML VIAL (J1940) IV SCH (08:26)
[2017-02-20] MEDS: MULTIVITAMINS/MINERALS THERAP 1 TAB PO SCH (08:27)
[2017-02-20] MEDS: PANTOPRAZOLE 40MG TAB (PROTONIX) PO SCH (08:27)
[2017-02-20] MEDS: ASPIRIN 81 MG ENTERIC TAB PO SCH (08:27)
[2017-02-20] MEDS: CARVedilol 3.125 MG TAB PO SCH ×2 (08:27→21:08)
[2017-02-20] MEDS: SENOKOT S TAB PO SCH ×2 (08:27→21:08)
[2017-02-20] MEDS: LACTOBACILLUS ACIDOPHILUS CAP (BACID) PO SCH ×3 (08:27→17:22)
[2017-02-20] MEDS: FERROUS GLUCONATE 324 MG TAB PO SCH ×2 (08:28→21:08)
--- NOTE | 2017-02-20 13:09 | IPNPDOC ---
Text Note Date of Service The patient was seen on 02/20/17. NOTE Subjective: Feels well. Denies any complaints. No chest pain/shortness of breath /palpitations. Objective: Vitals: (see below) General: No acute distress, laying comfortably in bed. HEENT: Moist mucous membranes. Neck: No JVD or lymphadenopathy Cardiac: RRR, No murmurs Pulm: Minimal coarse crackles at the bases b/l. No wheezing, rhonchi Abd: NT/ND + BS Ext: 1+ pitting edema bilateral lower extremities left greater than the right improving. Distal pulses intact. Left foot wound with bandage status post debridement by Dr. Garcia. No cyanosis Labs (see below) Images: MRI left foot 02/18/17 IMPRESSION: No evidence of osteomyelitis of the mid foot and hind foot, as discussed in detail above. Superficial soft tissue edema. No fluid collection or abscess. Renal ultrasound 02/18/17 Impression: Findings to suggest age-related medical renal disease. No hydronephrosis. 2 cm lower pole right renal cyst. Assessment/Plan 1. Recent small bowel enteritis- status post Vanc/ Zosyn at [facility]. Resolved. No leukocytosis and fevers. 2. Diabetic foot, Charcot foot- evaluated by Dr. Garcia status post debridement 02/19, with recommendations for starting antibiotics pending cultures, per Dr. Garcia. Patient has been started on doxycycline. 3. Acute kidney injury- patient is unsure what his normal renal function is. Did have a creatinine greater than 3 [facility] and is down to 1.7. Appreciate nephrology input. Started on Lasix as his renal function improved and he does have lower extremity edema. 4. History of systolic heart failure- echocardiogram pending. History of ear for 35-40%. 5. Status post mitral valve repair in [place] in May 2016 6. Hypertension- controlled continue current meds 7. History of CAD status post PCI-continue home meds 8. Diabetes mellitus- carpal consistent diet. Slight scale insulin. 9. Obstructive sleep apnea- encouraged uses home CPAP which she does not use at home. As needed oxygen at night. 10. Rash noted [facility]- has been resolving. Had an extensive vascular workup which was negative at [facility]. DVT prophy: Heparin subcutaneous VS,Fishbone, I+O VS, Fishbone, I+O Laboratory Tests 02/20/17 05:14 Red Blood Count 3.08 L, Mean Corpuscular Volume 97.7 H, Mean Corpuscular Hemoglobin 32.1, Mean Corpuscular Hemoglobin Concent 32.9, Red Cell Distribution Width 13.2, Calcium Level 8.0 L Vital Signs Date Time Temp Pulse Resp B/P (MAP) Pulse Ox O2 Delivery O2 Flow Rate FiO2 02/20/17 09:10 Nasal Cannula 1.0 02/20/17 08:27 78 137/63 02/20/17 08:00 98.3 19 98 I&O- Last 24 Hours up to 6 AM 02/21/17 06:00 Intake Total 360 ml Output Total 975 ml Balance -615 ml ISAC SAUNDERS MD Feb 20, 2017 13:09
--- NOTE | 2017-02-20 13:45 | ECGEPIP ---
Stationary ECG Study [facility] Test Date: 2017-02-19 Pat Name: THU ALDANA Department: Room: [place] [address] Gender: M [employer]: SANDHYA : 1935 Requested By: ISAC SAUNDERS Order Number: [id number] Reading MD: Liang Mcleod Measurements Intervals [place] Rate: 74 P: AR: 0 QRS: -43 QRSD: 123 T: 75 QT: 413 QTc: 460 Interpretive Statements ATRIAL FIBRILLATION WITH ABERRANT CONDUCTION OR VENTRICULAR PREMATURE COMPLEXES MARKED LEFT AXIS DEVIATION MODERATE INTRAVENTRICULAR CONDUCTION DELAY CONSIDER PRIOR INFERIOR WALL INFARCT NONSPECIFIC ST & T-WAVE ABNORMALITY Prior tracing on 02/18/2017 at 16:04:00. Sinus beats were noted, Sinus bradycardia Electronically Signed On 02-20-2017 13:44:39 EST by Liang Mcleod
--- NOTE | 2017-02-20 17:32 | IPN ---
DATE: 02/20/2017 SUBJECTIVE: The patient is seen this morning at the bedside. He feels well, no complaints. Had brisk urine output yesterday after receiving a dose of IV Lasix , urine recorded output was 4650. The patient states that he made more urine that was incontinent and could not be recorded. He denies any shortness of breath or palpitations at rest. VITAL SIGNS: Temperature 98.0, pulse 56-78, respiratory rate 18, blood pressure 137/63, saturating 98% on room air. Intake and output: Urine output yesterday 4650 mL, weight in the bed scale today 117.2 kg, net negative fluid balance in the past 24 hours is -2.8 liters. GENERAL: The patient is seen lying flat in bed, comfortable, in no acute distress. HEAD and NECK: Extraocular muscles are intact. The oral mucosa is moist. The neck is supple, there is no jugular venous distention or thyromegaly. CARDIAC: S1, S2, regular rate and rhythm, 2+ radial pulse. There is 1+ pitting edema in the left extremity and trace pitting edema in the right, improved from prior. PULMONARY: There are faint rales at the bases, otherwise clear. No accessory muscle use. ABDOMEN: Soft, obese, nontender. Positive bowel sounds. EXTREMITIES: The left foot is dressed and there is lower extremity edema, left greater than right and improved from prior. NEUROLOGIC: No focal deficits. PSYCHIATRIC: Appropriate mood and affect. SKIN: Warm and dry and there are fading purpuric and petechial rashes noted of the lower extremities. LABORATORY DATA: White count 7.7, hemoglobin 9.9, platelets 203, sodium 140, potassium 3.4, bicarbonate 32, BUN 30, creatinine 1.4, glucose 170, magnesium 1.9. Microbiology: Foot wound with Staphylococcus aureus. INPATIENT MEDICATIONS: The patient's Coreg dose was decreased to 3.125 mg by mouth twice a day. I have stopped his IV Lasix. He received a dose of potassium. Remainder of medications are unchanged from prior. PROBLEMS: 1. Nonoliguric acute kidney injury, likely a tubular injury. Given that his urinalysis was bland and negative for protein and only 2 RBCs, glomerulonephritis is much less likely. Renal function continues to improve. The patient had a brisk diuresis in response to 40 mg of IV Lasix. He may likely be in the polyuric phase of renal recovery and may not even require further diuretic. I will hold Lasix at the present time and he will be reassessed daily for diuretic needs. Electrolytes are fairly stable at present with a mild hypokalemic metabolic alkalosis likely secondary to his Lasix. 2. Diffuse purpuric rash with sudden onset and subsequent improvement with steroids with extensive vasculitic workup at [facility] which was negative. I do not think that his acute kidney injury was related to a vasculitis at this time. He may have had an interstitial nephritis that improved with steroids or a tubular injury. 3. Systolic cardiomyopathy with ejection fraction of about 40%. The patient's volume status is improving, he is in net negative balance. Given that he had a brisk urine output to Lasix and currently has a hypokalemic metabolic alkalosis, will hold Lasix at this time and continue to monitor urine output. He will be reassessed daily for diuretic need. 4. Hypertension. Well controlled on current regimen. Noted Coreg dose is decreased. 5. Diabetic foot. The patient is status post debridement and is on doxycycline. MTDD
[2017-02-20] MEDS: PRAVASTATIN 20 MG TAB PO SCH (21:08)
[2017-02-21] MEDS: DOXYCYCLINE HYCLATE 100 MG in D5W MINI-BAG PLUS 100 ML IV SCH ×2 (01:26→13:58)
[2017-02-21 04:00] VITALS: BP 160/77
[2017-02-21 05:15] LABS: MEAN CORPUSCULAR HGB CONC 33.7 g/dl (32.0-36.5); MEAN CORPUSCULAR VOLUME 95.1 fl (80.0-96.0); PLATELET COUNT, AUTOMATED 247 10^3/uL (150-450); RED CELL DISTRIBUTION WIDTH 13.1 % (11.5-14.5); WHITE BLOOD COUNT 8.8 10^3/uL (4.0-10.0)
[2017-02-21] MEDS: HEPARIN SOD (PORCINE) 5000 UNITS/ML VIAL SQ SCH ×3 (05:28→21:09)
[2017-02-21] MEDS: SLF 3 ML SYR IV SCH ×3 (05:28→21:10)
[2017-02-21 05:33] LABS: CALCIUM LEVEL 8.3 MG/DL (8.8-10.2); CREATININE FOR GFR 1.41 MG/DL (0.70-1.30); GLOMERULAR FILTRATION RATE 51.2 (>35); MAGNESIUM LEVEL 1.6 MG/DL (1.8-2.4); POTASSIUM SERUM 3.2 MEQ/L (3.5-5.1)
[2017-02-21 07:20] VITALS: BP 174/83
[2017-02-21] MEDS ORDERED: POTASSIUM CHLORIDE 10 MEQ SR TABLET PO ONE (07:45)
[2017-02-21] MEDS: MIRALAX *UNIT DOSE* 17GM PACKET PO SCH (09:00)
[2017-02-21] MEDS: MAG SULF 1GM/100ML (MAG RUN) 1 GM in APPROPRIATE DILUENT 1 EA IV SCH ×2 (09:13→11:37)
[2017-02-21] MEDS: PANTOPRAZOLE 40MG TAB (PROTONIX) PO SCH (09:14)
[2017-02-21] MEDS: HumaLOG INSULIN (NovoLOG) PER UNIT SC SCH ×4 (09:14→20:54)
[2017-02-21] MEDS: FERROUS GLUCONATE 324 MG TAB PO SCH ×2 (09:15→21:09)
[2017-02-21] MEDS: SENOKOT S TAB PO SCH ×2 (09:15→21:09)
[2017-02-21] MEDS: LACTOBACILLUS ACIDOPHILUS CAP (BACID) PO SCH ×3 (09:15→17:53)
[2017-02-21] MEDS: ASPIRIN 81 MG ENTERIC TAB PO SCH (09:16)
[2017-02-21] MEDS: MULTIVITAMINS/MINERALS THERAP 1 TAB PO SCH (09:16)
[2017-02-21] MEDS: CARVedilol 3.125 MG TAB PO SCH ×2 (09:16→21:09)
[2017-02-21] MEDS: TIMOLOL MALEATE 0.5% OPHTH SOLN 5 ML OU SCH (09:17)
[2017-02-21] MEDS ORDERED: amLODIPine 5 MG TAB PO ONE ×2 (10:30→17:30)
[2017-02-21 11:31] VITALS: BP 161/77
[2017-02-21 16:10] VITALS: BP 160/72
--- NOTE | 2017-02-21 19:16 | IPN ---
DATE: 02/21/2017 SUBJECTIVE: The patient was seen and examined at the bedside today morning. He reports that his rash is improving. Renal function is stable with a creatinine of 1.41. He is hemodynamically stable. Actually he is slightly hypertensive at this time. REVIEW OF SYSTEMS: The patient denies any fevers, chills, rigors, headaches, nausea, vomiting, chest pain, shortness of breath, pain abdomen, constipation. He does report left foot ulcer and mild amount of pain. Rest of review of systems is negative. OBJECTIVE: VITAL SIGNS: Temperature is 97.8 degrees Fahrenheit, blood pressure 161/77, pulse 62, respiratory rate 18, saturating 96% on room air. INTAKE AND OUTPUT: Urine output recorded as 1.9 liters yesterday, 700 mL so far today since overnight. Weight in the bed scale is 115.2 kg. PHYSICAL EXAMINATION: GENERAL: The patient is awake, alert, and oriented times three, lying in bed in no apparent distress. HEAD/NECK: Extraocular muscles intact. Pupils equal, round, and reactive to light. Mucous membranes are moist. Neck is supple. There is no jugular venous distention (JVD). CARDIOVASCULAR: S1, S2. Regular rate. No murmur, rub, or gallop. There is trace edema in the left foot. RESPIRATORY: Chest is clear to auscultation bilaterally. Bilateral equal air entry. No rales or rhonchi. ABDOMEN: Soft, obese. Positive bowel sounds. Nontender. No ascites, no organomegaly. MUSCULOSKELETAL: The patient's left foot is covered in a dressing. There is a trace amount of left lower extremity edema. Otherwise, pulses are 2+. CENTRAL NERVOUS SYSTEM (MANAGEMENT TECH): No focal neurological deficit. Power is 5/5 in all extremities. PSYCHIATRIC: Normal mood and affect. SKIN: Dry. There is improving petechial rash on the abdomen. LABORATORY DATA: CBC showed WBC 8.8, hemoglobin is 10.4, platelets are 247. BMP showed sodium 140, potassium 3.2, chloride 101, bicarbonate 31, BUN 26, creatinine is 1.41, magnesium 1.6. MICROBIOLOGY: Left foot wound culture is growing Staphylococcus aureus. Blood cultures are negative so far. IMAGING: MRI of the foot done on 02/18/2017, showed no evidence of osteomyelitis. CURRENT INPATIENT MEDICATIONS: The patient's medications were all reviewed by me. He was given a dose of magnesium sulfate 1 gram intravenous (IV) times one dose. His amlodipine has been increased to amlodipine 10 mg daily. He was also given a dose of potassium chloride 40 mEq times one dose. There is no other change in the medications today as compared with yesterday. ASSESSMENT: 81-year-old male who was admitted to [facility] because of acute kidney injury and rash. PLAN: 1. Acute kidney injury: The patient is nonoliguric at this time, is making good amount of urine. Renal function continues to improve. Creatinine is down to 1.41. Continue to monitor for improvement of the renal function. 2. Heart failure with reduced ejection fraction: The patient's volume status is optimized. He was given a diuretic for the last few days for volume overload. At this time, the patient is euvolemic. No need of Lasix administration at this time. The patient is in negative fluid balance for the last three days almost. Continue current dose of Coreg. No angiotension-converting enzyme (DORIS) or angiotensin II receptor blockers (ARB) at this time because of acute kidney injury. 3. Hypertension: Blood pressure is still suboptimal. The patient is already on Coreg 3.125 twice a day. We cannot decrease the Coreg dose because of low pulse rate. Amlodipine dose was already increased by the primary team to 10 mg daily. No DORIS inhibitors at this time because of recovering acute kidney injury. 4. Left diabetic food ulcer: The patient is status post debridement, currently on doxycycline. He was growing Staphylococcus aureus in the cultures which was sensitive to tetracycline. 5. Skin rash: The patient had a sudden onset of skin rash on the abdomen and thigh which is improving at this time. Vasculitis workup was already done. The patient's renal function is improving. He had no proteinuria on the dip stick done on 02/18/2017. There was a mild amount of blood. No further extensive proteinuria or vasculitis workup needed at this time. 6. Hypokalemia: The patient was already given potassium chloride 40 mEq today morning. 7. Hypomagnesemia: The patient was given magnesium sulfate 1 gram IV times one dose today morning by primary team.
[2017-02-21 20:00] VITALS: BP 145/68; O2SAT 98
[2017-02-21] MEDS: PRAVASTATIN 20 MG TAB PO SCH (21:09)
[2017-02-21 23:30] LABS: CALCIUM LEVEL 8.4 MG/DL (8.8-10.2); CREATININE FOR GFR 1.55 MG/DL (0.70-1.30); GLOMERULAR FILTRATION RATE 45.9 (>35); POTASSIUM SERUM 3.5 MEQ/L (3.5-5.1)
[2017-02-21 23:59] VITALS: BP 172/72
[2017-02-22] VITALS (7 sets, daily range): BP systolic 154–181; BP diastolic 74–85; O2SAT 94–95
[2017-02-22] MEDS: DOXYCYCLINE HYCLATE 100 MG in D5W MINI-BAG PLUS 100 ML IV SCH ×2 (02:24→14:45)
[2017-02-22] MEDS: HEPARIN SOD (PORCINE) 5000 UNITS/ML VIAL SQ SCH ×3 (05:36→21:17)
[2017-02-22] MEDS: SLF 3 ML SYR IV SCH ×3 (05:36→21:17)
[2017-02-22 06:09] LABS: MEAN CORPUSCULAR HEMOGLOBIN 31.6 pg (27.0-33.0); MEAN CORPUSCULAR HGB CONC 33.2 g/dl (32.0-36.5); MEAN CORPUSCULAR VOLUME 95.1 fl (80.0-96.0); PLATELET COUNT, AUTOMATED 246 10^3/uL (150-450); WHITE BLOOD COUNT 8.4 10^3/uL (4.0-10.0)
[2017-02-22 06:20] LABS: CALCIUM LEVEL 8.5 MG/DL (8.8-10.2); CREATININE FOR GFR 1.31 MG/DL (0.70-1.30); GLOMERULAR FILTRATION RATE 55.8 (>35); MAGNESIUM LEVEL 1.9 MG/DL (1.8-2.4); POTASSIUM SERUM 3.4 MEQ/L (3.5-5.1)
[2017-02-22] MEDS: ASPIRIN 81 MG ENTERIC TAB PO SCH (08:10)
[2017-02-22] MEDS: CARVedilol 3.125 MG TAB PO SCH (08:10)
[2017-02-22] MEDS: LACTOBACILLUS ACIDOPHILUS CAP (BACID) PO SCH ×3 (08:10→17:36)
[2017-02-22] MEDS: SENOKOT S TAB PO SCH ×2 (08:10→21:16)
[2017-02-22] MEDS: MULTIVITAMINS/MINERALS THERAP 1 TAB PO SCH (08:11)
[2017-02-22] MEDS: FERROUS GLUCONATE 324 MG TAB PO SCH ×2 (08:11→21:16)
[2017-02-22] MEDS: PANTOPRAZOLE 40MG TAB (PROTONIX) PO SCH (08:11)
[2017-02-22] MEDS: TIMOLOL MALEATE 0.5% OPHTH SOLN 5 ML OU SCH (08:11)
[2017-02-22] MEDS: amLODIPine 10 MG TAB PO SCH (08:11)
[2017-02-22] MEDS: HumaLOG INSULIN (NovoLOG) PER UNIT SC SCH ×4 (08:12→21:00)
[2017-02-22] MEDS: MIRALAX *UNIT DOSE* 17GM PACKET PO SCH (08:15)
[2017-02-22] MEDS ORDERED: MAG SULF 1GM/100ML (MAG RUN) 1 GM in APPROPRIATE DILUENT 1 EA IV ONE (09:00)
[2017-02-22] MEDS ORDERED: POTASSIUM CHLORIDE 10 MEQ SR TABLET PO ONE (09:00)
[2017-02-22] MEDS ORDERED: amLODIPine 5 MG TAB PO SCH (09:00)
[2017-02-22] MEDS: **hydrALAZINE** 10 MG TAB PO SCH ×3 (09:43→21:16)
--- NOTE | 2017-02-22 14:14 | IPNPDOC ---
Text Note Date of Service The patient was seen on 02/21/17. Late note NOTE Subjective: Feels well. Denies any complaints. No chest pain/shortness of breath /palpitations. Objective: Vitals: (see below) General: No acute distress, laying comfortably in bed. HEENT: Moist mucous membranes. Neck: No JVD or lymphadenopathy Cardiac: RRR, No murmurs Pulm: Minimal coarse crackles at the bases b/l. No wheezing, rhonchi Abd: NT/ND + BS Ext: 1+ pitting edema bilateral lower extremities left greater than the right improving. Distal pulses intact. Left foot wound with bandage status post debridement by Dr. Garcia. No cyanosis Labs (see below) Images: MRI left foot 02/18/17 IMPRESSION: No evidence of osteomyelitis of the mid foot and hind foot, as discussed in detail above. Superficial soft tissue edema. No fluid collection or abscess. Renal ultrasound 02/18/17 Impression: Findings to suggest age-related medical renal disease. No hydronephrosis. 2 cm lower pole right renal cyst. Assessment/Plan 1. Recent small bowel enteritis- status post Vanc/ Zosyn at [facility]. Resolved. No leukocytosis and fevers. 2. Diabetic foot, Charcot foot- evaluated by Dr. Garcia status post debridement 02/19, with recommendations for starting antibiotics pending cultures, per Dr. Garcia. Patient has been started on doxycycline. 3. Acute kidney injury- patient is unsure what his normal renal function is. Did have a creatinine greater than 3 [facility] and is down to 1.7. Appreciate nephrology input. Started on Lasix as his renal function improved and he does have lower extremity edema. 4. History of systolic heart failure- echocardiogram pending. History of ear for 35-40%. 5. Status post mitral valve repair in [place] in May 2016 6. Hypertension- controlled continue current meds 7. History of CAD status post PCI-continue home meds 8. Diabetes mellitus- carpal consistent diet. Slight scale insulin. 9. Obstructive sleep apnea- encouraged uses home CPAP which she does not use at home. As needed oxygen at night. 10. Rash noted [facility]- has been resolving. Had an extensive vascular workup which was negative at [facility]. 11. NSVT - goal K>4, Mg>2. On Coreg. Asymptomatic. Echo pending. DVT prophy: Heparin subcutaneous VS,Fishbone, I+O VS, Fishbone, I+O Laboratory Tests 02/21/17 19:13 Calcium Level 8.4 L 02/22/17 05:43 Calcium Level 8.5 L, Red Blood Count 3.29 L, Mean Corpuscular Volume 95.1, Mean Corpuscular Hemoglobin 31.6, Mean Corpuscular Hemoglobin Concent 33.2, Red Cell Distribution Width 13.0 Vital Signs Date Time Temp Pulse Resp B/P (MAP) Pulse Ox O2 Delivery O2 Flow Rate FiO2 02/22/17 12:44 97.5 60 20 154/76 (102) 97 Room Air 02/21/17 04:00 1.0 I&O- Last 24 Hours up to 6 AM 02/23/17 06:00 Intake Total 0 ml Output Total 0 ml Balance 0 ml ISAC SAUNDERS MD Feb 22, 2017 14:14
[2017-02-22] MEDS ORDERED: CARVedilol 3.125 MG TAB PO ONE (14:15)
--- NOTE | 2017-02-22 14:16 | IPNPDOC ---
Text Note Date of Service The patient was seen on 02/22/17. NOTE Subjective:Ambulating more today with his boot on. No chest pain/shortness of breath/palpitations. Objective: Vitals: (see below) General: No acute distress, laying comfortably in bed. HEENT: Moist mucous membranes. Neck: No JVD or lymphadenopathy Cardiac: RRR, No murmurs Pulm: Minimal coarse crackles at the bases b/l. No wheezing, rhonchi Abd: NT/ND + BS Ext: trace to 1+ pitting edema bilateral lower extremities left greater than the right improving. Distal pulses intact. Left foot wound with bandage status post debridement by Dr. Garcia. No cyanosis Labs (see below) Images: MRI left foot 02/18/17 IMPRESSION: No evidence of osteomyelitis of the mid foot and hind foot, as discussed in detail above. Superficial soft tissue edema. No fluid collection or abscess. Renal ultrasound 02/18/17 Impression: Findings to suggest age-related medical renal disease. No hydronephrosis. 2 cm lower pole right renal cyst. Echo 02/19/17 CONCLUSIONS: Mild concentric left ventricular hypertrophy with septal wall motion abnormality due to right ventricular pressure overload with at least mild impairment of global resting left ventricular systolic function. Prominently dilated left atrium with elevated estimated mean left atrial pressure. Prominently dilated right heart chambers with at least moderately severe pulmonary hypertension. Inferior vena cava (IVC) could not be clearly visualized. Mild to moderate mitral annular calcification and slight leaflet thickening with mitral leaflet clip in situ. No significant LV inflow tract obstruction and only mild persistent mitral insufficiency. Mild aortic valvular sclerosis without functional valvular abnormality. Assessment/Plan 1. Recent small bowel enteritis- status post Vanc/ Zosyn at [facility]. Resolved. No leukocytosis and fevers. 2. Diabetic foot, Charcot foot- evaluated by Dr. Garcia status post debridement 02/19, with recommendations for starting antibiotics pending cultures, per Dr. Garcia. Patient has been started on doxycycline. 3. Acute kidney injury- patient is unsure what his normal renal function is. Did have a creatinine greater than 3 [facility] and is down to 1.7. Appreciate nephrology input. Started on Lasix as his renal function improved and he does have lower extremity edema. 4. History of systolic heart failure- echocardiogram pending. History of ear for 35-40%. 5. 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 Hypertension- controlled continue current meds 7. History of CAD status post PCI-continue home meds 8. Diabetes mellitus- carpal consistent diet. Slight scale insulin. 9. Obstructive sleep apnea- encouraged uses home CPAP which she does not use at home. As needed oxygen at night. 10. Rash noted [facility]- has been resolving. Had an extensive vascular workup which was negative at [facility]. 11. NSVT - goal K>4, Mg>2. On Coreg, increase dose. Asymptomatic. Echo with preserved EF (see above). DVT prophy: Heparin subcutaneous Prognosis Guarded VS,Fishbone, I+O VS, Fishbone, I+O Laboratory Tests 02/21/17 19:13 Calcium Level 8.4 L 02/22/17 05:43 Calcium Level 8.5 L, Red Blood Count 3.29 L, Mean Corpuscular Volume 95.1, Mean Corpuscular Hemoglobin 31.6, Mean Corpuscular Hemoglobin Concent 33.2, Red Cell Distribution Width 13.0 Vital Signs Date Time Temp Pulse Resp B/P (MAP) Pulse Ox O2 Delivery O2 Flow Rate FiO2 02/22/17 12:44 97.5 60 20 154/76 (102) 97 Room Air 02/21/17 04:00 1.0 I&O- Last 24 Hours up to 6 AM 02/23/17 06:00 Intake Total 0 ml Output Total 0 ml Balance 0 ml ISAC SAUNDERS MD Feb 22, 2017 14:16
[2017-02-22] MEDS: TORSEMIDE 20 MG TAB PO SCH (14:46)
[2017-02-22] MEDS: CARVedilol 6.25 MG TAB PO SCH (21:16)
[2017-02-22] MEDS: PRAVASTATIN 20 MG TAB PO SCH (21:16)
[2017-02-23] MEDS: DOXYCYCLINE HYCLATE 100 MG in D5W MINI-BAG PLUS 100 ML IV SCH ×2 (01:50→13:16)
[2017-02-23 04:00] VITALS: BP 142/81
[2017-02-23] MEDS: SLF 3 ML SYR IV SCH ×3 (05:31→21:15)
[2017-02-23] MEDS: HEPARIN SOD (PORCINE) 5000 UNITS/ML VIAL SQ SCH ×3 (05:32→21:16)
[2017-02-23] MEDS: **hydrALAZINE** 10 MG TAB PO SCH (05:33)
[2017-02-23 05:41] LABS: MEAN CORPUSCULAR HEMOGLOBIN 32.4 pg (27.0-33.0); MEAN CORPUSCULAR HGB CONC 33.8 g/dl (32.0-36.5); PLATELET COUNT, AUTOMATED 240 10^3/uL (150-450); RED CELL DISTRIBUTION WIDTH 12.9 % (11.5-14.5); WHITE BLOOD COUNT 8.6 10^3/uL (4.0-10.0)
[2017-02-23 06:12] LABS: CALCIUM LEVEL 8.4 MG/DL (8.8-10.2); CREATININE FOR GFR 1.41 MG/DL (0.70-1.30); GLOMERULAR FILTRATION RATE 51.2 (>35); MAGNESIUM LEVEL 1.7 MG/DL (1.8-2.4); POTASSIUM SERUM 3.3 MEQ/L (3.5-5.1)
[2017-02-23 07:49] VITALS: BP 168/86
[2017-02-23] MEDS: HumaLOG INSULIN (NovoLOG) PER UNIT SC SCH ×4 (07:53→21:00)
[2017-02-23] MEDS: LACTOBACILLUS ACIDOPHILUS CAP (BACID) PO SCH ×3 (07:53→17:39)
[2017-02-23] MEDS ORDERED: POTASSIUM CHLORIDE 10 MEQ SR TABLET PO ONE (09:00)
[2017-02-23] MEDS: SENOKOT S TAB PO SCH ×2 (09:00→21:14)
[2017-02-23] MEDS: MIRALAX *UNIT DOSE* 17GM PACKET PO SCH (09:00)
[2017-02-23] MEDS: ASPIRIN 81 MG ENTERIC TAB PO SCH (09:26)
[2017-02-23] MEDS: MULTIVITAMINS/MINERALS THERAP 1 TAB PO SCH (09:26)
[2017-02-23] MEDS: amLODIPine 10 MG TAB PO SCH (09:27)
[2017-02-23] MEDS: FERROUS GLUCONATE 324 MG TAB PO SCH ×2 (09:27→21:14)
[2017-02-23] MEDS: CARVedilol 6.25 MG TAB PO SCH ×2 (09:28→21:15)
[2017-02-23] MEDS: PANTOPRAZOLE 40MG TAB (PROTONIX) PO SCH (09:32)
[2017-02-23] MEDS: TORSEMIDE 20 MG TAB PO SCH (09:32)
[2017-02-23] MEDS: TIMOLOL MALEATE 0.5% OPHTH SOLN 5 ML OU SCH (09:32)
[2017-02-23] MEDS: SLF 3 ML SYR IV PRN (09:36)
[2017-02-23] MEDS: MAG SULF 1GM/100ML (MAG RUN) 1 GM in APPROPRIATE DILUENT 1 EA IV SCH ×2 (09:36→10:49)
[2017-02-23] MEDS ORDERED: DOXY-278 PO ×2 (10:57→13:26)
[2017-02-23] MEDS ORDERED: TORS10TA3 PO ×2 (10:57→13:26)
[2017-02-23] MEDS ORDERED: AMLO10TA2 PO ×2 (10:57→13:26)
[2017-02-23] MEDS ORDERED: CARV6.25 PO (10:57)
[2017-02-23] MEDS ORDERED: HYDR50TA PO (10:57)
[2017-02-23 12:00] VITALS: BP 141/74
[2017-02-23] MEDS: **hydrALAZINE** 50 MG TAB PO SCH ×2 (13:17→21:14)
[2017-02-23] MEDS ORDERED: CORE6.25 PO (13:26)
[2017-02-23] MEDS ORDERED: HYDR-3911 PO (13:26)
[2017-02-23] MEDS ORDERED: DOXY100C PO (14:07)
[2017-02-23 16:00] VITALS: BP 119/64
--- NOTE | 2017-02-23 16:10 | DS.PDOC ---
Discharge Summary General Date of Admission Feb 18, 2017 at 15:41 Date of Discharge 02/23/17 Attending Physician: ISAC SAUNDERS MD Specialist/Consultants Involve: CRYSTAL ANDERSON MD Discharge Summary PROCEDURES PERFORMED DURING STAY: Debridement of left foot wound ADMITTING/DISCHARGE DIAGNOSES: 1. Recent small bowel enteritis Resolved. 2. Diabetic foot, Charcot foot- evaluated by Dr. Garcia status post debridement 02/19 3. Acute kidney injury 4. History of systolic heart failure- echocardiogram pending. History EF 35-40%. 5. 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 Hypertension 7. History of CAD status post PCI 8. Diabetes mellitus 9. Obstructive sleep apnea 10. Rash noted [facility]- resolved. 11. NSVT COMPLICATIONS/CHIEF COMPLAINT: Transferred to [facility] for CHF HISTORY OF PRESENT ILLNESS/HOSPITAL COURSE: This is a 81-year-old male with past medical history of systolic heart failure EF of 35-40%, with improved EF at this point, history of mitral valve repair in 2016, hypertension, diabetes, CAD who was transferred from [facility] for acute kidney injury and CHF. Patient initially presented to [facility] with rash which has resolved now. He didn't extensive workup for vasculitis which was negative. Patient also developed acute kidney injury with a creatinine increasing to 3.5 [facility] however history and down to 1.3 now. He does have a Charcot foot, that has been chronic and follows up with podiatry outpatient. This was debridement and wound culture with sensitivities noted MSSA susceptible to doxycycline. Over the course of hospitalization, patient also had nonsustained atrial tachycardia, asymptomatic, and his Coreg dose was increased. His electric also replace as well. He was also diuresed for his decompensated heart failure, and placed on a lower dose of torsemide per nephrology prior to discharge. Patient is to follow-up with his primary care physician, equipment operator warehouse, procurement intern, and nurse sane in 1-2 weeks. Patient is return to the ED if symptoms worsen. He states he may wait until he goes down to [place] in April prior to following up with his equipment operator warehouse/PCP/procurement intern. He will be going to stay with his family near [place] and will be leaving today. DISCHARGE MEDICATIONS: Please see below. ALLERGIES: Please see below. PHYSICAL EXAMINATION ON DISCHARGE: Vitals: (see below) General: No acute distress, laying comfortably in bed. HEENT: Moist mucous membranes. Neck: No JVD or lymphadenopathy Cardiac: RRR, No murmurs Pulm: Minimal coarse crackles at the bases b/l. No wheezing, rhonchi Abd: NT/ND + BS Ext: trace to 1+ pitting edema bilateral lower extremities left greater than the right improving. Distal pulses intact. Left foot wound with bandage status post debridement by Dr. Garcia. No cyanosis LABORATORY DATA: Please see below. IMAGING: MRI left foot 02/18/17 IMPRESSION: No evidence of osteomyelitis of the mid foot and hind foot, as discussed in detail above. Superficial soft tissue edema. No fluid collection or abscess. Renal ultrasound 02/18/17 Impression: Findings to suggest age-related medical renal disease. No hydronephrosis. 2 cm lower pole right renal cyst. Echo 02/19/17 CONCLUSIONS: Mild concentric left ventricular hypertrophy with septal wall motion abnormality due to right ventricular pressure overload with at least mild impairment of global resting left ventricular systolic function. Prominently dilated left atrium with elevated estimated mean left atrial pressure. Prominently dilated right heart chambers with at least moderately severe pulmonary hypertension. Inferior vena cava (IVC) could not be clearly visualized. Mild to moderate mitral annular calcification and slight leaflet thickening with mitral leaflet clip in situ. No significant LV inflow tract obstruction and only mild persistent mitral insufficiency. Mild aortic valvular sclerosis without functional valvular abnormality. PROGNOSIS: Guarded ACTIVITY: As tolerated. DIET: Low-sodium diet DISCHARGE PLAN/DISPOSITION: DISCHARGE INSTRUCTIONS: 1. F/u with PCP, Nephro, Cardio, Podiatry in 1-2 weeks. Return to ED if symptoms worsen. DISCHARGE CONDITION: Stable. TIME SPENT ON DISCHARGE: Greater than 30 minutes. Vital Signs/I&Os Vital Signs Date Time Temp Pulse Resp B/P (MAP) Pulse Ox O2 Delivery O2 Flow Rate FiO2 02/23/17 13:17 168/86 02/23/17 12:00 97.8 60 17 99 Room Air 02/21/17 04:00 1.0 I&O- Last 24 Hours up to 6 AM 02/24/17 06:00 Intake Total 360 ml Output Total 1415 ml Balance -1055 ml Laboratory Data Labs 24H Laboratory Tests 2 02/23/17 05:32: Nucleated Red Blood Cells % (auto) 0.0, Anion Gap 8, Glomerular Filtration Rate 51.2, Blood Urea Nitrogen 20H, Creatinine 1.41H, Sodium Level 142, Potassium Level 3.3L, Chloride Level 104, Carbon Dioxide Level 30, Calcium Level 8.4L, Magnesium Level 1.7L CBC/BMP Laboratory Tests 02/23/17 05:32 Red Blood Count 3.27 L, Mean Corpuscular Volume 96.0, Mean Corpuscular Hemoglobin 32.4, Mean Corpuscular Hemoglobin Concent 33.8, Red Cell Distribution Width 12.9, Calcium Level 8.4 L Microbiology Microbiology 02/18/17 Blood Culture - Preliminary, Resulted No Growth after 72 hours. All specime... 02/18/17 Blood Culture - Preliminary, Resulted No Growth after 72 hours. All specime... 02/19/17 Gram Stain - Final, Complete 02/19/17 Wound Culture - Final, Complete Staphylococcus Aureus 02/19/17 Anaerobic Culture - Final, Complete Discharge Medications Scheduled Amlodipine Besylate (Amlodipine Besylate) 10 Mg Tab, 10 MG PO DAILY Aspirin (Aspirin 81) 81 Mg Tab, 81 MG PO DAILY, (Reported) Carvedilol (Coreg) 6.25 Mg Tab, 6.25 MG PO BID Doxycycline Hyclate (Doxycycline) 100 Mg Cap, 100 MG PO Q12H Ferrous Gluconate (Ferrous Gluconate) 324 Mg Tab, 324 MG PO BID, (Reported) STARTED AT [facility] Glimepiride (Glimepiride) 2 Mg Tab, 2 MG PO BID, (Reported) Hydralazine HCl (Hydralazine HCl) 50 Mg Tab, 50 MG PO TID Lactobacillus Rhamnosus (Culturelle) 1 Cap Cap, 1 CAP PO DAILY, (Reported) Multivitamins *[facility] STOCKED* (Thera M Plus *[facility] STOCKED*) 1 Tab Tab, 1 TAB PO DAILY, (Reported) Omeprazole (Omeprazole) 40 Mg Cap, 40 MG PO DAILY, (Reported) Potassium Chloride (Klor-Con M20) 20 Meq Tabcr, 20 MEQ PO DAILY, (Reported) STARTED AT [facility] Pravastatin Sod (Pravastatin Sodium) 40 Mg Tab, 40 MG PO QHS, (Reported) Timolol Maleate (Timolol Maleate) 0.5 % Jessica, 1 % OU QAM, (Reported) Torsemide (Torsemide) 10 Mg Tab, 10 MG PO DAILY Scheduled PRN Acetaminophen (Tylenol) 325 Mg Tab, 650 MG PO Q6H PRN for PAIN, (Reported) Dicyclomine HCl (Dicyclomine HCl) 10 Mg Cap, 10 MG PO Q6H PRN for CRAMPS, ( Reported) Milk Of Magnesia (Milk of Magnesia) 1,200 Mg/15 Ml [place], 30 ML PO DAILY PRN for CONSTIPATION, (Reported) STARTED AT [facility] Sodium Chloride (Sodium Chloride Nasal [place]) 0.65 % Spr, 2 SPRAY NA Q2H PRN for NASAL CONGESTION, (Reported) EACH NOSTRIL Allergies Coded Allergies: No Known Allergies (Unverified , 02/18/17) ISAC SAUNDERS MD Feb 23, 2017 16:10
[2017-02-23 20:00] VITALS: BP 135/79
--- NOTE | 2017-02-23 20:25 | IPN ---
DATE: 02/23/2017 SUBJECTIVE: Patient was seen and examined at the bedside today, morning. The patient is hemodynamically stable. His renal function is also stable with a creatinine of 1.4 today. He was given a dose of torsemide yesterday. REVIEW OF SYSTEMS: The patient denies any fever, chills, rigors, headache, chest pain, shortness of breath, pain in abdomen, constipation or diarrhea. He reports that his skin rash is significantly better, and he reports persistent left lower extremity edema, which is improving as well. The rest of the review of systems is negative. OBJECTIVE: VITAL SIGNS: Temperature is 97.8 degrees Fahrenheit, blood pressure is 141/74, pulse is 60, respiratory rate of 17, saturating 99% on room air. INTAKE/OUTPUT: Urine output recorded as 2.6 liters yesterday, 2.2 liters so far today since overnight. Weight on the bed scale is 111.7 kg. PHYSICAL EXAMINATION: GENERAL: The patient is awake, alert, oriented times three, sitting in bed, in no apparent distress. HEAD AND NECK EXAM: Extraocular muscles intact. Pupils equally round and reactive to light. Mucous membranes are moist. Neck is supple. There is no jugular venous distention (JVD). CARDIOVASCULAR: S1, S2, regular rate. No murmur, rub or gallop. There is trace to 1+ edema of the left foot and trace edema of the right leg. RESPIRATORY: Chest is clear to auscultation bilaterally. Bilateral equal air entry. No rales or rhonchi. ABDOMEN: Abdomen is soft, obese, positive bowel sounds, nontender. No ascites, no organomegaly. MUSCULOSKELETAL: Patient's left foot is covered with a dressing. There is more edema in the left leg as compared with the right. Old surgical scar on the left knee. CENTRAL NERVOUS SYSTEM: No focal neurological deficit. Power is 5/5 in all extremities. PSYCHIATRIC: Normal mood and affect. LAB REVIEW: CBC showed a WBC of 8.6, hemoglobin 10.6, platelets are 240. BMP shows sodium 142, potassium 3.3, chloride 104, bicarbonate is 30, BUN , creatinine is 1.4; it was 1.3 yesterday, magnesium 1.7. CURRENT INPATIENT MEDICATIONS: The patient's medications were all reviewed by me. He was given a dose of magnesium sulfate 1 gram IV as one dose. His hydralazine has been changed to 50 mg by mouth every 8 hours. I changed his torsemide dose to 10 mg by mouth daily. ASSESSMENT: An 81-year-old male who was admitted because of acute kidney injury and rash. He also has a left foot diabetic ulcer, hypertension and lower extremity edema. PLAN: 1. Acute kidney injury. The patient's renal function was improving up until yesterday. Creatinine was down to 1.3, however, he was given a dose of torsemide, and he made a good amount of urine with one dose of torsemide. There is a slight bump in creatinine to 1.4. I am going to decrease the diuretic dose. The rest of the medications can be continued. 2. Congestive heart failure with reduced ejection fraction. Angiotensin-converting enzyme (DORIS )inhibitors are on hold because of acute kidney injury. I have restarted the patient on torsemide; however, I am decreasing the dose to 10 mg by mouth daily. 3. Hypertension. Blood pressure is still elevated, so the primary team has already increased the hydralazine dose to 50 mg by mouth every 8 hours. Continue current dose of amlodipine 10 mg daily. Continue Coreg 6.25 mg by mouth twice a day. 4. Hypokalemia. The patient was already given potassium chloride 40 mEq by mouth times one dose today. 5. Hypomagnesemia. The patient was given a dose of magnesium sulfate 1 gram IV today morning. 6. Disposition: It is okay to discharge the patient from a nephrology standpoint. He needs to followup with nephrology as an outpatient after discharge from the hospital. Plan of care was discharged with the hospitalist, Dr. Shree Steele.
[2017-02-23] MEDS: DOXYCYCLINE HYCLATE 100 MG TAB PO SCH (21:00)
[2017-02-23] MEDS: PRAVASTATIN 20 MG TAB PO SCH (21:14)
[2017-02-23 23:59] VITALS: BP 134/65
[2017-02-24] MEDS: DOXYCYCLINE HYCLATE 100 MG in D5W MINI-BAG PLUS 100 ML IV SCH (02:53)
[2017-02-24 04:00] VITALS: BP 134/64
[2017-02-24] MEDS: DOXYCYCLINE HYCLATE 100 MG TAB PO SCH (04:07)
[2017-02-24 05:23] VITALS: BP 134/64
[2017-02-24] MEDS: **hydrALAZINE** 50 MG TAB PO SCH (05:23)
[2017-02-24] MEDS: SLF 3 ML SYR IV SCH (05:24)
[2017-02-24] MEDS: HEPARIN SOD (PORCINE) 5000 UNITS/ML VIAL SQ SCH (05:24)
[2017-02-24 06:09] LABS: MEAN CORPUSCULAR HEMOGLOBIN 31.9 pg (27.0-33.0); MEAN CORPUSCULAR HGB CONC 33.5 g/dl (32.0-36.5); MEAN CORPUSCULAR VOLUME 95.1 fl (80.0-96.0); PLATELET COUNT, AUTOMATED 240 10^3/uL (150-450); WHITE BLOOD COUNT 8.7 10^3/uL (4.0-10.0)
[2017-02-24 06:10] LABS: CALCIUM LEVEL 8.7 MG/DL (8.8-10.2); CREATININE FOR GFR 1.57 MG/DL (0.70-1.30); GLOMERULAR FILTRATION RATE 45.3 (>35); MAGNESIUM LEVEL 1.8 MG/DL (1.8-2.4); POTASSIUM SERUM 3.4 MEQ/L (3.5-5.1)
[2017-02-24] MEDS ORDERED: TORSEMIDE 10 MG TABLET PO SCH (09:00)
[2017-03-02 00:06] LABS: ALDOSTERONE <1.0 ng/dL (0.0-30.0)
== END 2017-02-24 08:17 | disposition home or self-care (01) | DRG 683 ==
LOC: M PCU 15:41
PROVIDERS: ADMIT Internal Medicine; ATTEND Internal Medicine
PROC: 0JCR0ZZ Extirpation of Matter from Left Foot Subcutaneous Tissue and Fascia, Open Approach (ICD-10-PCS; principal; 2017-02-19)
DX: N17.9 Acute kidney failure, unspecified (principal); I50.22 Chronic systolic (congestive) heart failure; I11.0 Hypertensive heart disease with heart failure; E78.5 Hyperlipidemia, unspecified; B95.61 Methicillin susceptible Staphylococcus aureus infection as the cause of diseases classified elsewhere; E11.621 Type 2 diabetes mellitus with foot ulcer; E11.610 Type 2 diabetes mellitus with diabetic neuropathic arthropathy; L97.529 Non-pressure chronic ulcer of other part of left foot with unspecified severity; J44.9 Chronic obstructive pulmonary disease, unspecified; Z95.9 Presence of cardiac and vascular implant and graft, unspecified; Z89.422 Acquired absence of other left toe(s); Z79.82 Long term (current) use of aspirin; Z79.84 Long term (current) use of oral hypoglycemic drugs; Z79.899 Other long term (current) drug therapy